=== PATIENT | male | born 1970 | race Two or more races ===

== ENCOUNTER 2019-04-08 12:32 | Emergency (ER) | payer BC, OTHER ==
[~2019-04-08] VITALS: Ht 172.7 cm; Wt 104.3 kg
[~2019-04-08 12:32] MED LIST: ASP81EC PO; ATOR20TA50 PO; FURO1TAB31 PO; LISI10TA6 PO; MET25T PO; POTA10TA79 PO
[2019-04-08 15:41] VITALS: BP 178/99
== END 2019-04-08 15:42 | disposition home or self-care (01) ==
LOC: ER 12:32
DX: T62.91XA Toxic effect of unspecified noxious substance eaten as food, accidental (unintentional), initial encounter (principal); J02.9 Acute pharyngitis, unspecified; I10 Essential (primary) hypertension; I25.2 Old myocardial infarction; Z90.89 Acquired absence of other organs; Y92.89 Other specified places as the place of occurrence of the external cause

== ENCOUNTER 2019-06-05 08:48 | Emergency (ER) | payer BC, MEDICAID ==
[~2019-06-05] VITALS: Ht 172.7 cm; Wt 104.3 kg
[2019-06-05 09:13] VITALS: BP 169/103
== END 2019-06-05 10:26 | disposition home or self-care (01) ==
LOC: ER 08:48
DX: S82.451A Displaced comminuted fracture of shaft of right fibula, initial encounter for closed fracture (principal); I10 Essential (primary) hypertension; I25.2 Old myocardial infarction; Z90.89 Acquired absence of other organs; W19.XXXA Unspecified fall, initial encounter; Y93.89 Activity, other specified; Y99.8 Other external cause status; Y92.89 Other specified places as the place of occurrence of the external cause
CPT/HCPCS: 73590